=== PATIENT | female | born 1970 | race Two or more races ===

== ENCOUNTER 2023-02-23 08:56 | Outpatient (REF) | payer OTHER, SELFPAY ==
[2023-02-26 16:30] LABS: H Pylori Breath Test Negative (Negative)
== END 2023-02-23 08:57 | disposition home or self-care (01) ==
LOC: CF 08:56
PROVIDERS: PCP Internal Medicine; Visit Provider Nurse Practitioner Family
DX: R14.0 Abdominal distension (gaseous) (principal); K59.01 Slow transit constipation
CPT/HCPCS: 83013

== ENCOUNTER 2023-02-23 08:56 | Outpatient (AMB) | payer OTHER, SELFPAY ==
--- NOTE | 2023-02-23 09:02 | A.OFFVIS_ITS ---
Intake Vital Signs 02/23/23 09:07 Height 5 ft Weight 130 lb 4.438 oz BMI 25.4 Blood Pressure Location Lt brachial Position Sitting Intake Visit Reasons: Abdominal Bloating Intake Note: Bernice presents in the office for abdominal bloating. CC: she states that she does not have irregular bowel movements but she suffers from abdominal discomfort and bloating. Allergies No Known Allergies Allergy (Verified 02/23/23 09:07) HPI Abdominal Bloating HPI Details 52-year-old female with past medical his tory of gastritis is here today for requested visit. Patient has seen Dr. Lindo and last visit was in December of 2019. Patient had EGD in April of 2019 and colonoscopy in January of 2016. It showed esophagitis, gastritis, duodenitis, esophageal inlet patch noted, normal colon. Biopsy of GE junction with chronic gastritis negative for H pylori. Patient was treated with pantoprazole. Patient was also experiencing then abdominal bloating and was given simethicone with defect. Patient denies dyspepsia, dysphagia or odynophagia. Patient reports ongoing bloating, tried rifaximin and was not helpful in the past. Patient also tried FODMAP diet and it was not helpful. Currently patient reports that she does not have any epigastric pain postprandially. Patient reports she continues to have bloating. Reports that she is moving her bowels well without any issues. However occasionally patient reports that she will have constipation. She is using soursop capsules and she reports that they are helpful. Patient reports to have good appetite. Stable weight. Review of Systems Const Denies weight gain and Denies weight loss ENT Reports no additional complaints, Denies dysphagia and Denies odynophagia Card Reports no additional complaints Resp Reports no additional complaints GI Denies abdominal pain, Denies belching, Denies melena, Reports bloating, Denies change in bowel habits, Reports constipation (Occasional), Denies dysphagia, Denies excessive flatus, Denies dyspepsia, Denies heartburn, Denies diarrhea, Denies loose stools, Denies nausea, Denies odynophagia and Denies vomiting Details: Urinary frequency Musc Reports no additional complaints Neuro Reports no additional complaints Psych Reports no additional complaints Endo Reports no additional complaints Physical Exam Vital Signs: BMI result Body Mass Index 25.4 Const General: healthy appearing, no acute distress and well developed Nutritional Appearance: well nourished Orientation/consciousness: patient oriented x3 HEENT Head: Yes normal to inspection, Yes normocephalic and Yes atraumatic Face and sinus: Yes normal facial exam Mouth: Normal oral and palatal mucosa present Throat: Yes posterior oropharynx normal, Yes tonsils normal and Yes uvula midline Eyes General: appearance normal, both eyes and all related structures Neck Neck: Yes normal visual inspection, Yes full ROM and Yes trachea midline Thyroid: Thyroid normal Resp Effort & Inspection: normal respiratory effort, able to speak in complete sentences, no tracheal deviation and symmetric chest movement Auscultation: clear to auscultation bilaterally Cardio Rate: regular rate Heart sounds: S1 normal heart sound present and S2 normal heart sound present GI Inspection: Yes normal to inspection and No distended Palpation (GI): Soft to palpation, not firm, nontender and No hepatosplenomegaly present Auscultation: normal bowel sounds General: Yes no CVA tenderness Back/Spine/Pelvis Back: no CVA tenderness Skin General skin exam: elasticity normal, turgor normal and dry skin Neuro General: patient oriented x3 Psych Appearance: grossly normal Mental Status: mental status grossly normal Assessment & Plan Assessment & Plan (1) Postprandial abdominal bloating: Code(s): R14.0 - Abdominal distension (gaseous) (2) Constipation: Code(s): K59.00 - Constipation, unspecified Qualifiers: Constipation type: slow transit constipation Qualified Code(s): K59.01 - Slow transit constipation Plan Discussed with patient will FODMAP diet. List of food recommended as well as list of food to avoid given to patient. Patient was advised to stay away from lactose. Will check transglutaminase, vitamin B12, folate and D levels. Will check for H pylori. Will treat patient empirically if positive. Patient can start taking simethicone with meals. She will try to increase fluid intake and will drink senna tea. Patient reports urinary frequency. States that she has this issue for a long time. Would benefit from urology consult to rule out interstitial cystitis. Patient was advised to stop taking soursop capsules to see if her symptoms will get better. Avoid food and liquids that contain caffeine, chocolate, tomato, citrus. I will see her in 3 months, sooner on as needed basis. Patient is agreeable to this plan and verbalizes understanding of instructions. She was given the opportunity to ask questions and all questions answered. Thank you for allowing me to participate in her care Orders: Orders H Pylori Breath Test Today Vitamin D 25-OH (D2 and D3) Today E55.9 - Vitamin D deficiency, unspecified Transglutaminase Ab IgG Today R10.9 - Unspecified abdominal pain Transglutaminase IgA Today R10.9 - Unspecified abdominal pain Vitamin B12 and Folate Today R19.7 - Diarrhea, unspecified Medications: New simethicone (Gas Relief (simethicone)) 125 mg PO TID-QID PRN 120 caps 2RF abdominal distention Coding Level of Care Code New Pt Level 4 (46250) Diagnoses Postprandial abdominal bloating R14.0 Slow transit constipation K59.01 Constipation type: slow transit constipation Time Spent (min) 45 Comment 30 minutes spent with patient and additional 15 minutes spent reviewing her records
[2023-02-23 09:07] VITALS: BMI 25.4
== END 2023-02-23 09:56 | disposition home or self-care (01) ==
PROVIDERS: PCP Internal Medicine; Visit Provider Nurse Practitioner Family
DX: R14.0 Abdominal distension (gaseous) (principal); K59.01 Slow transit constipation
CPT/HCPCS: 99204

== ENCOUNTER 2023-08-05 08:38 | Outpatient (REF) | payer OTHER, SELFPAY ==
[2023-08-05 12:08] LABS: Folate 11.2 ng/mL (> or = 4.0); Vitamin B12 421 pg/mL (200-900)
[2023-08-06 19:14] LABS: Transglutaminase Ab IgG <1.0 U/mL; Transglutaminase IgA <1.0 U/mL
[2023-08-09 16:08] LABS: Vitamin D 25-OH, D2 <4 ng/mL; Vitamin D 25-OH, D3 29 ng/mL; Vitamin D 25-OH, Total 29 ng/mL (30-100)
== END 2023-08-05 08:39 | disposition home or self-care (01) ==
LOC: HO.LAB 08:38
PROVIDERS: PCP Internal Medicine; Visit Provider Nurse Practitioner Family
DX: R10.9 Unspecified abdominal pain (principal); R19.7 Diarrhea, unspecified; E55.9 Vitamin D deficiency, unspecified
CPT/HCPCS: 36415; 82306; 82607; 82746; 86364

== ENCOUNTER 2023-08-14 08:48 | Outpatient (REF) | payer OTHER, SELFPAY ==
[2023-08-14 11:20] LABS: Alanine Aminotransferase 14 U/L (0-31); Albumin Level 4.3 g/dL (3.5-5.0); Alkaline Phosphatase 80 U/L (39-117); Aspartate Amino Transferase 22 U/L (5-31); Bilirubin Direct 0.4 mg/dL (0.0-0.5); Bilirubin Total 1.4 mg/dL (0.0-1.0); Lipase 26 U/L (8-78); Total Protein 7.3 g/dL (6.5-8.0)
== END 2023-08-14 08:49 | disposition home or self-care (01) ==
LOC: HO.LAB 08:48
PROVIDERS: PCP Internal Medicine; Visit Provider Nurse Practitioner Family
DX: R10.9 Unspecified abdominal pain (principal); R14.0 Abdominal distension (gaseous); R74.01 Elevation of levels of liver transaminase levels; K59.01 Slow transit constipation
CPT/HCPCS: 36415; 80076; 83690

== ENCOUNTER 2023-08-14 08:48 | Outpatient (AMB) | payer OTHER, SELFPAY ==
--- NOTE | 2023-08-14 08:50 | A.OFFVIS_ITS ---
Intake Vital Signs 08/14/23 08:51 Weight 134 lb 0.657 oz BP 130/49 L Blood Pressure Location Lt brachial Position Sitting Pulse 57 Intake Visit Reasons: 3 month follow up postprandial abdominal bloating Intake Note: Patient here for 3m f/u post prandial abd bloating. Reports tried FODMAP diet and other diets with no improvement with bloating. Not taking gas relief. Pstient c/o: bloating, gassy. C/o foamy urine. Technical Mgr Required: No Accompanied by: Self / Same As Patient Allergies No Known Allergies Allergy (Verified 08/14/23 08:55) HPI 3 month follow up postprandial abdominal bloating HPI Details LAST VISIT: Postprandial abdominal bloating Constipation Plan Discussed with patient will FODMAP diet. List of food recommended as well as list of food to avoid given to patient. Patient was advised to stay away from lactose. Will check transglutaminase, vitamin B12, folate and D levels. Will check for H pylori. Will treat patient empirically if positive. Patient can start taking simethicone with meals. She will try to increase fluid intake and will drink senna tea. Patient reports urinary frequency. States that she has this issue for a long time. Would benefit from urology consult to rule out interstitial cystitis. Patient was advised to stop taking soursop capsules to see if her symptoms will get better. Avoid food and liquids that contain caffeine, chocolate, tomato, citrus. I will see her in 3 months, sooner on as needed basis. Patient is agreeable to this plan and verbalizes understanding of instructions. She was given the opportunity to ask questions and all questions answered. ? Thank you for allowing me to participate in her care Orders Orders H Pylori Breath Test Today Vitamin D 25-OH (D2 and D3) Today E55.9 Transglutaminase Ab IgG Today R10.9 Transglutaminase IgA Today R10.9 Vitamin B12 and Folate Today R19.7 Medications New simethicone (Gas Relief (simethicone)) 125 mg PO TID-QID PRN 120 caps 2RF abdom inal distention TODAY'S VISIT: Patient is here today for follow-up. Patient reports that she continues to feel bloated. Patient tried different food, followed low FODMAP diet, continues to feel bloated. Patient states that she does not empty her bowels every day. Uses black seed oil and seems to be helpful, however patient states that she is not using it every day. Patient states that when she goes to the bathroom she is not emptying her bowels completely. Patient feels like she drinks sufficient amount of liquid throughout the day. Patient reports that when she is urinating she feels like her urine is foamy. Patient denies any odor. . Denies any pain when urinating. Last colonoscopy in 2016 at [facility] patient had polyps and was told to repeat colonoscopy in 5 years. Patient had upper endoscopy in 2019. Reports family history of CRC. Patient states that maternal cousins were diagnosed with colon cancer in her 50s. Patient denies any issues with anesthesia in the past. No history of sleep apnea. Not on any anticoagulation medication. Patient denies any cardiac or respiratory symptoms. [facility] Medical History (Updated 08/14/23 @ 08:56 by SUYAPA Huitron) Arthritis Review of Systems Const Denies weight gain and Denies weight loss ENT Reports no additional complaints, Denies dysphagia and Denies odynophagia Card Reports no additional complaints Resp Reports no additional complaints GI Reports abdominal pain (Cramping), Denies belching, Denies melena, Reports bloating, Reports constipation, Denies dysphagia, Denies excessive flatus, Denies dyspepsia, Denies heartburn, Denies diarrhea, Denies loose stools, Denies nausea, Denies odynophagia and Denies vomiting Reports no additional complaints Musc Reports no additional complaints Neuro Reports no additional complaints Psych Reports no additional complaints Endo Reports no additional complaints Physical Exam Vital Signs: Last Vital Signs Pulse 57 08/14/23 08:51 BP 130/49 L 08/14/23 08:51 Const General: healthy appearing, no acute distress and well developed Nutritional Appearance: well nourished Orientation/consciousness: patient oriented x3 HEENT Head: Yes normal to inspection, Yes normocephalic and Yes atraumatic Face and sinus: Yes normal facial exam Mouth: Normal oral and palatal mucosa present Throat: Yes posterior oropharynx normal, Yes tonsils normal and Yes uvula midline Eyes General: appearance normal, both eyes and all related structures Neck Neck: Yes normal visual inspection, Yes full ROM and Yes trachea midline Thyroid: Thyroid normal Resp Effort & Inspection: normal respiratory effort, able to speak in complete sentences, no tracheal deviation and symmetric chest movement Auscultation: clear to auscultation bilaterally Cardio Rate: regular rate Heart sounds: S1 normal heart sound present and S2 normal heart sound present GI Inspection: Yes normal to inspection and No distended Palpation (GI): Soft to palpation, not firm, nontender and No hepatosplenomegaly present Auscultation: normal bowel sounds General: Yes no CVA tenderness Back/Spine/Pelvis Back: no CVA tenderness Skin General skin exam: elasticity normal, turgor normal and dry skin Neuro General: patient oriented x3 Psych Appearance: grossly normal Mental Status: mental status grossly normal Results Reviewed Results Reviewed: Laboratory Tests 02/23/23 08/05/23 09:56 08:50 Vitamin B12 421 25-OH Vitamin D Total 29 L Folate 11.2 Tiss Transglutamin IgG <1.0 Tiss Transglutamin IgA <1.0 H. pylori Breath Test Negative Assessment & Plan Assessment & Plan (1) Postprandial abdominal bloating: Code(s): R14.0 - Abdominal distension (gaseous) (2) Constipation: Code(s): K59.00 - Constipation, unspecified Qualifiers: Constipation type: slow transit constipation Qualified Code(s): K59.01 - Slow transit constipation (3) Screen for colon cancer: Code(s): Z12.11 - Encounter for screening for malignant neoplasm of colon Plan Patient continue feels bloated and occasional abdominal cramping. Will send patient for ultrasound. Will check for pancreatic insufficiency, check lipase. Patient can start taking MiraLax on every day basis to see if she can empty her bowels completely. Patient will increase fluid intake and activity to promote better bowel motility. Patient will be sent for colonoscopy. History of colonoscopy in 2016 with polyps. Was told to repeat colonoscopy every 5 years. Patient also has positive family history of CRC. Maternal cousins were diagnosed with CRC in their 50s. Patient denies any issues with anesthesia. No history of sleep apnea. Not on any anticoagulation medication. No cardiac or respiratory symptoms. What to expect before during and after procedure discussed with patient. Stressed the importance of clear liquid diet and good bowel prep day before procedure. I will see her after the procedure, sooner on as needed basis. Patient is agreeable to this plan and verbalizes understanding of instructions. She was given the opportunity to ask questions and all questions answered. Thank you for allowing me to participate in her care Orders: Orders Pancreatic Elastase-1 Today R10.9 - Unspecified abdominal pain Liver Panel Today R74.01 - Elevation of levels of liver transaminase levels US abdomen complete Today R10.9 - Unspecified abdominal pain Lipase Today R10.9 - Unspecified abdominal pain Medications: New polyethylene glycol 3350 (Miralax) 17 grams PO DAILY 510 grams 2RF bisacodyl (Dulcolax (bisacodyl)) take 4 tabs at noon the day before your colonoscopy 20 mg (4 x 5 mg) PO ONCE 1 day 4 tabs 0RF Z12.11 - Encounter for screening for malignant neoplasm of colon polyethylene glycol 3350 (Miralax) As directed by gastroenterology department at [facility] 238 grams PO ONCE 238 grams 0RF Z12.11 - Encounter for screening for malignant neoplasm of colon Coding Level of Care Code Est Pt Level 4 (00723) Diagnoses Postprandial abdominal bloating R14.0 Slow transit constipation K59.01 Constipation type: slow transit constipation Screen for colon cancer Z12.11 Time Spent (min) 40 Comment 25 minutes spent with patient and additional 15 minutes spent reviewing her records
[2023-08-14 08:51] VITALS: BP 130/49; PULSE 57
== END 2023-08-14 09:47 | disposition home or self-care (01) ==
PROVIDERS: PCP Internal Medicine; Visit Provider Nurse Practitioner Family
DX: R14.0 Abdominal distension (gaseous) (principal); K59.01 Slow transit constipation; Z12.11 Encounter for screening for malignant neoplasm of colon
CPT/HCPCS: 99214

== ENCOUNTER 2023-08-25 07:49 | Outpatient (REF) | payer OTHER, SELFPAY ==
--- NOTE | ~2023-08-25 | US_ITS ---
EXAMINATION: US ABDOMEN COMPLETE CLINICAL INFORMATION: Unspecified abdominal pain. COMPARISON: None available. TECHNIQUE: Real-time imaging of the abdominal viscera. FINDINGS: PANCREAS: Normal. ABDOMINAL AORTA: The proximal, mid, and distal segments are normal in caliber. Minimal atherosclerotic plaque is seen in the distal abdominal aorta. INFERIOR VENA CAVA: Visualized portions are normal. LIVER: Normal. The liver is normal in size. The liver contour is normal. Parenchymal echogenicity is normal. No focal hepatic lesion. There is no intrahepatic biliary duct dilatation seen. GALLBLADDER: Normal. The gallbladder is physiologically distended without evidence of stones, sludge, polyps, wall thickening or pericholecystic fluid. No sonographic Botello's sign COMMON BILE DUCT: Normal in caliber measuring 0.5 cm in diameter. RIGHT KIDNEY: Normal. No hydronephrosis. No renal calculi or focal parenchymal lesions. The kidney measures 9.0 cm in maximum dimension. LEFT KIDNEY: Normal. No hydronephrosis. No renal calculi or focal parenchymal lesions. The kidney measures 9.6 cm in maximum dimension. SPLEEN: Normal. The spleen measures 7.8 cm in maximum dimension. FREE FLUID: None. US/US abdomen complete IMPRESSION: Minimal atherosclerotic plaque is seen in the distal abdominal aorta. No other significant finding.
== END 2023-08-25 07:50 | disposition home or self-care (01) ==
LOC: HO.US 07:49
PROVIDERS: PCP Internal Medicine; Visit Provider Nurse Practitioner Family
DX: R10.9 Unspecified abdominal pain (principal)
CPT/HCPCS: 76700

== ENCOUNTER 2024-04-20 09:01 | Day surgery (SDC) | payer OTHER, SELFPAY ==
--- NOTE | 2024-04-19 12:27 | HO.ANESPROP2 ---
Documented by User: Karyna Norman NP 04/19/24 12:27 HPI - Anesthesia Eval Consult details Narrative: 53yo F for Colonoscopy PMFSH Past Medical History Medical History Arthritis Social History Social History Are you a primary manager care management to a significant other at home: No Do you presently have visiting nurse or other home services: No Patient Tobacco Use Status: Never used Tobacco Use of substances other than those prescribed or required for medical reasons: No Have you been hit, kicked, punched, or otherwise hurt by someone within the past year? If so, by whom?: No Are you DNR?: No Advance Directives: No Advance Directives Information Provided: Yes Recently lost weight without trying: No Nutrition Risks: No Nutritional Risk Patient : No Meds Allergies Allergy/AdvReac Type Severity Reaction Status Date / Time No Known Allergies Allergy Verified 08/14/23 08:55 Home Medications ?Medication ?Instructions ?Recorded ?Confirmed ?Last Taken ?Type magnesium oxide 400 mg (241.3 mg 400 mg PO DAILY 02/23/23 Unknown History magnesium) tablet riboflavin (vitamin B2) 100 mg 200 mg PO BID headache 02/23/23 Unknown History tablet (Vitamin B-2) Exam Height,Weight and Vital Signs: Weight 60.781 kg Assessment and Plan Assessment Anesthesia Assessment: Chart Reviewed Documented by User: Royal Hermosillo MD 04/20/24 10:45 [facility] Past Medical History Medical History Arthritis Family History Family history of problems with anesthesia: No Surgical History History of Problems with Anesthesia: No Social History Social History Are you a primary manager care management to a significant other at home: No Do you presently have visiting nurse or other home services: No Patient Tobacco Use Status: Never used Tobacco Use of substances other than those prescribed or required for medical reasons: No Have you been hit, kicked, punched, or otherwise hurt by someone within the past year? If so, by whom?: No Are you DNR?: No Advance Directives: No Advance Directives Information Provided: Yes Recently lost weight without trying: No Nutrition Risks: No Nutritional Risk Patient : No Meds Allergies Allergy/AdvReac Type Severity Reaction Status Date / Time No Known Allergies Allergy Verified 08/14/23 08:55 Home Medications ?Medication ?Instructions ?Recorded ?Confirmed ?Last Taken ?Type magnesium oxide 400 mg (241.3 mg 400 mg PO DAILY 02/23/23 Unknown History magnesium) tablet riboflavin (vitamin B2) 100 mg 200 mg PO BID headache 02/23/23 Unknown History tablet (Vitamin B-2) Exam Airway Mallampati Class: II TM Dist: >3cm Neck ROM: Full Loose/Missing/Broken Teeth: No Heart: ok Lungs: ok Assessment and Plan Assessment Anesthesia Assessment: Anesthesia Plan Discussed Final Anesthetic Review Family History of Problems with Anesthesia: No History of Problems with Anesthesia: No NPO: Yes ASA Class: II Final Preanesthetic Review: No Changes in Pt Med Stat, Meds/Allgs Chart Reviewed, Consent Obtained/Reviewed and Anes Risks/Benef Reviewed Patient Risk: Low Procedure Risk: Low Anesthetic Plan Anesthetic Plan: MAC: and Agree w/ Assess. and Plan Disposition: Standard PACU
--- OUTSIDE RECORDS SUMMARY | 2024-04-20 09:09 | XMS_ITS | Continuity of Care Document ---
Author Organization [facility] Address [address] [place] [address]- Care Team Providers Care Student Development Dean Name Role Phone Aria Dela Cruz MD Primary Care Physician [phone] Encounter [facility] Date(s): 02/24/24 - 03/25/24 [facility] [address] [place], [place] [address] Encounter Type: Triage Allergies, Adverse Reactions, Alerts Substance Criticality Severity Reaction Reaction Severity Status Other Environmental Allergy 1 Active Lactose Active 1seasonal Immunizations Given and Recorded Vaccine Date Status Refusal Reason influenza virus vaccine, inactivated 1 02/23/23 Gi ginger influenza virus vaccine, inactivated 2 03/17/22 Gi ginger influenza virus vaccine, inactivated 3 05/20/18 Gi ginger SARS-CoV-2 (COVID-19) mRNA-1273 vaccine 09/11/20 R ecorded SARS-CoV-2 (COVID-19) mRNA-1273 vaccine 08/14/20 R ecorded tetanus/diphtheria/pertussis, acel(Tdap) 4 05/20/18 Given 1Result Comment: [facility] 26884-499-49 2Result Comment: 34038-347-90 3Result Comment: [05/20/2018] [facility]# [id number] pt. tolerated inj. without complications...CO 4Result Comment: [05/20/2018] [facility]# [id number] pt. tolerated inj. without complications...CO Medications Calcium Calcium, 0 Refills, Maintenance, 05/22/23 8:59:00 AM EST Start Date: 05/22/23 Status: Ordered Repeat number: 1 Collagen 0 Refills, Maintenance, 02/23/23 2:52:00 PM EDT, Partial fill upon patient request if the prescription is for a schedule II opioid drug. Start Date: 02/23/23 Status: Ordered Repeat number: 1 estradiol 0.1 mg/g vaginal cream See Instructions, 1 Gm Vaginally daily at bedtime for 2 weeks only then changed to twice weekly thereafter., # 42.5 Gm, 2 Refills, Maintenance, 05/22/23 3:57:00 PM EST, [facility] #[id number], Partial fill upon patient request if the prescription is for a schedule II opioid drug., 152, cm, 03/31/23 9:58:00 EST, Height, 59, kg, 05/22/23 8:58:00 EST, Dry Weight Start Date: 05/22/23 Status: Ordered Quantity: 42.5 Unit: g Repeat number: 3 Flax Seed Oil 0 Refills, Maintenance, 02/20/22 7:58:00 AM EDT, Partial fill upon patient request if the prescription is for a schedule II opioid drug. Start Date: 02/20/22 Status: Ordered Repeat number: 1 Mag-Ox 400 400 mg oral tablet 1 tablet = 400 mg, By Mouth, Daily, for 30 days, # 30 tablet, 11 Refills, Acute 07/01/24 10:18:00 AMEST, 07/07/23 10:18:00 AM EST, Tablet, [facility] #[id number], Partial fill upon patient requestif the prescription is for a schedule II opioid drug., 152, cm, 02/23/23 13:57:00 EDT, Height, 62, kg, 03/17/22 15:15:00 EST, Dry Weight Start Date: 07/07/23 Stop Date: 07/01/24 Status: Ordered Quantity: 30.0 Unit: tablet Repeat number: 12 Melatonin = 5 mg, Daily at bedtime, 0 Refills, Maintenance, 06/08/17 1:28:31 PM EST Start Date: 06/08/17 Status: Ordered Repeat number: 1 Misc Rx Refills 0, Maintenance, SUGAR BEARS GUMMIES HAIR VITAMINS, 01/10/19 8:14:13 AM EDT, Compound Start Date: 01/10/19 Status: Ordered Repeat number: 1 Misc Rx Refills 0, Maintenance, CALCIUM, 05/12/22 11:57:00 AM EST, Supply Start Date: 05/12/22 Status: Ordered Repeat number: 1 Misc Rx See Instructions, Refills 0, Maintenance, organic sea avila, 01/08/23 10:12:00 AM EDT, Supply Start Date: 01/08/23 Status: Ordered Repeat number: 1 Misc Rx Refills 0, Maintenance, black seed 500mg, 01/08/23 10:13:00 AM EDT, Supply Start Date: 01/08/23 Status: Ordered Repeat number: 1 Misc Rx Refills 0, Maintenance, graviola 5000mg, 01/08/23 10:14:00 AM EDT, Supply Start Date: 01/08/23 Status: Ordered Repeat number: 1 Multivitamin Daily, 0 Refills, Maintenance, 02/20/16 1:46:26 PM EDT Start Date: 02/20/16 Status: Ordered Repeat number: 1 Vitamin B12 0 Refills, Maintenance, 12/07/17 8:22:42 AM EDT Start Date: 12/07/17 Status: Ordered Repeat number: 1 Vitamin B12 1000 mcg oral tablet 1 tablet = 1,000 mcg, By Mouth, Daily, # 90 tablet, 3 Refills, Maintenance, 02/23/23 2:49:00 PM EDT, Tablet, [facility] #[id number], Partial fill upon patient request if the prescription is for a schedule II opioid drug., 152, cm, 02/23/23 13:57:00 EDT, Height, 62, kg, 03/17/22 15:15:00 EST, Dry Weight Start Date: 02/23/23 Status: Ordered Quantity: 90.0 Unit: tablet Repeat number: 4 Vitamin B2 100 mg oral tablet 2 tablet = 200 mg, By Mouth, 2 times a day, FOR HEADACHES, # 360 tablet, 3 Refills, Maintenance, 06/15/23 11:42:00 AM EST, Tablet, [facility] #[id number], Partial fill upon patient request if theprescription is for a schedule II opioid drug., 152, cm, 06/15/23 11:29:00 EST, Height, 59, kg, 05/22/23 8:58:00 EST, Dry Weight Start Date: 06/15/23 Status: Ordered Quantity: 360.0 Unit: tablet Repeat number: 4 Vitamin D3 1000 intl units oral capsule 1 capsule = 25 mcg, By Mouth, Daily, # 75 capsule, 0 Refills, Maintenance, 02/23/23 2:52:00 PM EDT,Capsule, Partial fill upon patient request if the prescription is for a schedule II opioid drug. Start Date: 02/23/23 Status: Ordered Quantity: 75.0 Unit: capsule Repeat number: 1 Problem List Condition Confirmation Course Effective Dates Status Health Status Informant Allergic rhinitis Confirmed Active Hair loss Confirmed Active Anemia Confirmed Active Arthritis Confirmed Active Bruxism Confirmed Active Chest pain Confirmed Active B12 deficiency Confirmed Active COVID-19 virus infection Confirmed Active Degenerative cervical disc Confirmed Active Diarrhea Confirmed Active Fatigue Confirmed Active Headache Confirmed Active Joint pain Confirmed Active Muscle ache Confirmed Active Nausea Confirmed Active Obstructive sleep apnea Confirmed Active Palpitations Confirmed Active Hand tingling Confirmed Active Routine check-up Confirmed Active Snoring Confirmed Active Muscle spasm Confirmed Active Spondylolisthesis Confirmed Active Bilateral thigh pain Confirmed Active Vitamin D deficiency Confirmed Active Social History Social History Type Response Smoking Status Never smoker entered on: 02/16/15 Sex Sex Representation Female (finding) Patient Care team information Care Team Personnel Name: Aria Dela Cruz MD Position: [facility] Physician - Primary Care Member Role: PCP Address: [address] [place] [address] Telecom: Care Team Related Persons Name: JULIAN PALUMBO Name: TREVOR PALUMBO Name: ELLIS FARIAS Name: ELLIS FARIAS Insurance Providers Guarantor name: SBAAS BENJAMIN Health Plan Information #: 1 Payer: [facility] SELECT HMO Member Number: NA Policy Number: NA Group Number: NA
--- OUTSIDE RECORDS SUMMARY | 2024-04-20 09:09 | XMS_ITS | Continuity of Care Document ---
Author Organization [facility] Address [address] [place] [address]- Care Team Providers Care Grinder Set Up Operator Universal Name Role Phone Aria Dela Cruz MD Primary Care Physician [phone] Encounter [facility] Date(s): 03/10/24 - 04/09/24 [facility] [address] [place] [address]- Attending Physician: Admtr, Ar8 Admitting Physician: Admtr, Ar8 Referring Physician: Admtr, Ar8 Encounter Type: Triage Allergies, Adverse Reactions, Alerts Substance Criticality Severity Reaction Reaction Severity Status Lactose Active Other Environmental Allergy 1 Active 1seasonal Immunizations Given and Recorded Vaccine Date Status Refusal Reason influenza virus vaccine, inactivated 1 02/23/23 Gi ginger influenza virus vaccine, inactivated 2 03/17/22 Gi ginger influenza virus vaccine, inactivated 3 05/20/18 Gi ginger SARS-CoV-2 (COVID-19) mRNA-1273 vaccine 09/11/20 R ecorded SARS-CoV-2 (COVID-19) mRNA-1273 vaccine 08/14/20 R ecorded tetanus/diphtheria/pertussis, acel(Tdap) 4 05/20/18 Given 1Result Comment: [facility] 71143-187-38 2Result Comment: [id number] 3Result Comment: [05/20/2018] [facility]# [id number] pt. tolerated inj. without complications...CO 4Result Comment: [05/20/2018] [facility]# [id number] pt. tolerated inj. without complications...CO Medications Calcium [...] 2 Refills, Maintenance, 05/22/23 3:57:00 PM EST, [facility] #[id number], Partial fill upon patient request if the [...] 10:18:00 AMEST, 07/07/23 10:18:00 AM EST, Tablet, [id number], Partial fill upon patient requestif the prescription [...] Refills, Maintenance, 02/23/23 2:49:00 PM EDT, Tablet, [facility] #[id number], Partial fill upon patient request if the [...] Refills, Maintenance, 06/15/23 11:42:00 AM EST, Tablet, [facility] #[id number], Partial fill upon patient request if theprescription [...] Personnel Name: Aria Dela Cruz MD Position: [facility] Physician - Primary Care Member Role: PCP Address: [address] [place] [address] Telecom: Care Team Related Persons Name: JULIAN PALUMBO Name: TREVOR PALUMBO Name: ELLIS FARIAS Name: ELLIS FARIAS Insurance Providers Guarantor name: SABAS BENJAMIN Health Plan Information #: 1 Payer: [facility] SELECT HMO Member Number: NA Policy Number: NA Group Number: NA
--- OUTSIDE RECORDS SUMMARY | 2024-04-20 09:09 | XMS_ITS | Continuity of Care Document ---
Author Organization [facility] Address [address] [place] [address]- Care Team Providers Care Stamping Press Operator Name Role Phone Aria Dela Cruz MD Primary Care Physician Encounter [facility] [id number] Date(s): 03/10/24 - 04/09/24 [facility] [address] [place], [place] [address] Encounter Type: Triage Allergies, Adverse Reactions, Alerts [...] tetanus/diphtheria/pertussis, acel(Tdap) 4 05/20/18 Given 1Result Comment: [facility] [id number] 2Result Comment: [id number] 3Result Comment: [05/20/2018] [facility]# [id number] pt. tolerated inj. without complications...CO 4Result Comment: [05/20/2018] [facility]# [id number] pt. tolerated inj. without complications...CO Medications Calcium [...] 2 Refills, Maintenance, 05/22/23 3:57:00 PM EST, [facility] #[id number], Partial fill upon patient request if the [...] 10:18:00 AMEST, 07/07/23 10:18:00 AM EST, Tablet, [facility] #[id number], Partial fill upon patient requestif the prescription [...] Refills, Maintenance, 02/23/23 2:49:00 PM EDT, Tablet, [facility] #[id number], Partial fill upon patient request if the [...] Refills, Maintenance, 06/15/23 11:42:00 AM EST, Tablet, [facility] #[id number], Partial fill upon patient request if theprescription [...] Personnel Name: Aria Dela Cruz MD Position: [facility] Physician - Primary Care Member Role: PCP Address: [address] [place] [address] Telecom: Care Team Related Persons Name: JULIAN PALUMBO Name: TREVOR PALUMBO Name: ELLIS FARIAS Name: ELLIS FARIAS Insurance Providers Guarantor name: SABAS BENJAMIN Health Plan Information #: 1 Payer: [facility] SELECT HMO Member Number: NA Policy Number: NA Group Number: NA
--- OUTSIDE RECORDS SUMMARY | 2024-04-20 09:10 | XMS_ITS | Continuity of Care Document ---
Author Organization [facility] Address [address], [place] [address]- Care Team Providers Care Cycle Manager Name Role Phone Aria Dela Cruz MD Primary Care Physician [id number] Date(s): 11/27/23 - 03/26/24 [facility] [address] [place], [place] [address] Attending Physician: Aria Dela Cruz MD Encounter Type: Pre Office Visit Allergies, Adverse Reactions, Alerts Substance Criticality Severity [...] tetanus/diphtheria/pertussis, acel(Tdap) 4 05/20/18 Given 1Result Comment: [facility] [id number] 2Result Comment: [id number] 3Result Comment: [05/20/2018] [facility]# [id number] pt. tolerated inj. without complications...CO 4Result Comment: [05/20/2018] [facility]# [id number] pt. tolerated inj. without complications...CO Medications Calcium [...] 2 Refills, Maintenance, 05/22/23 3:57:00 PM EST, [facility] #[id number], Partial fill upon patient request if the [...] 10:18:00 AMEST, 07/07/23 10:18:00 AM EST, Tablet, [facility] #[id number], Partial fill upon patient requestif the prescription [...] Refills, Maintenance, 02/23/23 2:49:00 PM EDT, Tablet, [facility] #[id number], Partial fill upon patient request if the [...] Refills, Maintenance, 06/15/23 11:42:00 AM EST, Tablet, [facility] #[id number], Partial fill upon patient request if theprescription [...] Personnel Name: Aria Dela Cruz MD Position: [facility] Physician - Primary Care Member Role: PCP Address: [address] [place] [address] Telecom: Care Team Related Persons Name: JULIAN PALUMBO Name: TREVOR PALUMBO Name: ELLIS FARIAS Name: ELLIS FARIAS Insurance Providers Guarantor name: SABAS BENJAMIN Health Plan Information #: 1 Payer: [facility] SELECT HMO Member Number: [id number] Policy Number: NA Group Number: [id number] Health Plan Information #: 2 Payer: [facility] SELECT HMO Member Number: [id number] Policy Number: NA Group Number: NA
[2024-04-20 10:02] VITALS: BMI 24.8
[2024-04-20 10:14] VITALS: BP 98/50; PULSE 55; RESP 16; TEMP 36.9; O2SAT 100
--- NOTE | 2024-04-20 10:17 | P.HPSUR_ITS ---
Pre-Procedural Eval Section A - 24 Hr Update-Section A only Date of Service: 04/20/24 Section B - Complete if H&P > 30 days Chief Complaint: Abdominal distension (gaseous),constipation, Relevant Family History (Specify if Yes): No Relevant Social History: None Present Medications: see Short Stay Collaborative assessment Medical History: Significant History (arthritis) History of Previous Operations: No relevant previous surgery Allergies: Allergies Allergy/AdvReac Type Severity Reaction Status Date / Time No Known Allergies Allergy Verified 08/14/23 08:55 Review of Systems Sugical H&P ROS: Negative: Constitution, Cardiovascular, Respiratory, Neurologi kristie, Psychiatric, Hem-Onc, Allergic/Immunologic, Gastrointestinal, Genitourinary, Musculoskeletal, Integumentary, Endocrine and Eyes/Ears/Nose/Throat Exam Surgical H&P Exam: Normal: HEENT, Normal: Heart, Normal: Lungs, Normal: Extremities, Normal: Abdomen, Normal: Skin and Normal: Neurological Plan Diagnosis/Plan: Unchanged I have reviewed the history and physical and performed a pertinent physical examination on my patient. No changes have occurred unless specified. Time Spent With Patient Time: Total time managing care of this patient today ____ minutes.
[2024-04-20] MEDS: Lactated Ringers 1,000 ML 100 ML IVCONT (10:23)
--- NOTE | 2024-04-20 10:54 | P.OPN-COLO_ITS ---
Colonoscopy Operative Note Operative Note Date of Service: 04/20/24 Narrative: Operative Information Procedure Description: Colonoscopy Indication: hx of polyps Anesthesia: MAC COLONOSCOPY Instrument: Olympus variable stiffness pediatric scope 190L Colonoscopy Monitoring: Vital signs and clinical assessment, continuous EKG monitoring, Pulse oximetry, Carbon Dioxide monitoring and blood pressure monitoring were done throughout the procedure. Colon withdrawal time was 8 minutes. Procedure: The patient was placed in the left lateral decubitis position and pre-procedure medications were administered. After a digital rectal examination of the ano-rectum, the video colonoscope was inserted into the rectum and advanced through the colon to the cecum/TI. The colonoscope was slowly withdrawn in a retrograde panoramic fashion and the colon mucosa was carefully examined including a retroflexed view of the rectum. Findings and interventions are described below. Procedure Difficulty: moderate due to tortuous colon Findings: Terminal Ileum-normal Cecum:normal Right sided retroflexion- normal Ascending Colon: normal Transverse Colon -normal Descending Colon:normal Sigmoid Colon: normal Rectum: Retroflexion with medium sized internal hemorrhoids seen, grade I Anorectum - normal Intervention: none Colon preparation: [place] Bowel Preparation Scale Right colon; 2 Transverse colon: 3 Left colon; 3 (0 = Unprepared colon segment with mucosa not seen due to solid stool that cannot be cleared. 1 = Portion of mucosa of the colon segment seen, but other areas of the colon segment not well seen due to staining, residual stool and/or opaque liquid. 2 = Minor amount of residual staining, small fragments of stool and/or opaque liquid, but mucosa of colon segment seen well. 3 = Entire mucosa of colon segment seen well with no residual staining, small fragments of stool or opaque liquid) Impression and Post Procedure Diagnosis: tortuous colon, might explain her constipation internal hemorrhoids Plan: High fiber diet leaflet Avoid straining at stool, epsom salts and sitz bath, anusol supps or cream Repeat Colonoscopy in 5 years due to prior hx of colon polyps or earlier if clinically indicated Above findings were reviewed with the patient and relevant handouts were provided if indicated.
[2024-04-20 11:00] VITALS: BP 82/45; PULSE 64; RESP 18; TEMP 36.1
[2024-04-20 11:15] VITALS: BP 106/52; PULSE 60; RESP 16; TEMP 36.1; O2SAT 98
== END 2024-04-20 12:08 | disposition home or self-care (01) ==
PROVIDERS: PCP Internal Medicine; Visit Provider Internal Medicine Gastroenterology
PROC: 0DJD8ZZ Inspection of Lower Intestinal Tract, Via Natural or Artificial Opening Endoscopic (ICD-10-PCS; CPT 45378; principal; 2024-04-20 11:20)
DX: Z12.11 Encounter for screening for malignant neoplasm of colon (principal); Z86.0101 Personal history of adenomatous and serrated colon polyps; K64.0 First degree hemorrhoids; R14.0 Abdominal distension (gaseous); K59.01 Slow transit constipation; Q43.8 Other specified congenital malformations of intestine
CPT/HCPCS: 45378; J2003; J2704

== ENCOUNTER → 2024-04-20 09:01 | Outpatient (BNV) | payer OTHER, SELFPAY | PROVIDERS: PCP Internal Medicine; Visit Provider Internal Medicine Gastroenterology | DX: Z12.11 Encounter for screening for malignant neoplasm of colon (principal); Z86.0100 Personal history of colon polyps, unspecified; Z80.0 Family history of malignant neoplasm of digestive organs; K64.0 First degree hemorrhoids | CPT/HCPCS: 45378 ==

== ENCOUNTER 2024-05-11 09:53 | Outpatient (AMB) | payer OTHER, SELFPAY ==
[2024-05-11 09:59] VITALS: BP 108/58; PULSE 64; O2SAT 98; BMI 25.8
--- NOTE | 2024-05-11 09:59 | A.OFFVIS_ITS ---
Vital Signs 05/11/24 09:59 Height 5 ft Weight 132 lb 4.438 oz BMI 25.8 BP 108/58 L Blood Pressure Location Lt brachial Position Sitting Pulse 64 Pulse Source Pulse Oximeter Pulse Oximetry (%) 98 Oxygen Delivery Method Room Air Intake Visit Reasons: S/P [place]: Dr. Samuel Intake Note: ESTABLISHED PATIENT Reason; s/p colo Changes/concerns? Tortuous colon per TH. Pt states that their bowel habits had improved post op until this past week when they returned to their chronic sx presentation. Allergies No Known Allergies Allergy (Verified 05/11/24 10:05) HPI HPI S/P [place]: Dr. Samuel: Details: LAST VISIT Postprandial abdominal bloating Constipation Screen for colon cancer Plan Patient continue feels bloated and occasional abdominal cramping. Will send patient for ultrasound. Will check for pancreatic insufficiency, check lipase. Patient can start taking MiraLax on every day basis to see if she can empty her bowels completely. Patient will increase fluid intake and activity to promote better bowel motility. Patient will be sent for colonoscopy. History of colonoscopy in 2016 with polyps. Was told to repeat colonoscopy every 5 years. Patient also has positive family history of CRC. Maternal cousins were diagnosed with CRC in their 50s. Patient denies any issues with anesthesia. No history of sleep apnea. Not on any anticoagulation medication. No cardiac or respiratory symptoms. What to expect before during and after procedure discussed with patient. Stressed the importance of clear liquid diet and good bowel prep day before procedure. I will see her after the procedure, sooner on as needed basis. Patient is agreeable to this plan and verbalizes understanding of instructions. She was given the opportunity to ask questions and all questions answered. ? Thank you for allowing me to participate in her care Orders Orders Pancreatic Elastase-1 Today R10.9 Liver Panel Today R74.01 US abdomen complete Today R10.9 Lipase Today R10.9 Medications New polyethylene glycol 3350 (Miralax) 17 grams PO DAILY 510 grams 2RF bisacodyl (Dulcolax (bisacodyl)) take 4 tabs at noon the day before your colonoscopy 20 mg (4 x 5 mg) PO ONCE 1 day 4 tabs 0RF Z12.11 polyethylene glycol 3350 (Miralax) As directed by gastroenterology department at [facility] 238 grams PO ONCE 238 grams 0RF Z12.11 COLONOSCOPY Findings: Terminal Ileum-normal Cecum:normal Right sided retroflexion- normal Ascending Colon: normal Transverse Colon -normal Descending Colon:normal Sigmoid Colon: normal Rectum: Retroflexion with medium sized internal hemorrhoids seen, grade I Anorectum - normal Intervention: none Colon preparation: [place] Bowel Preparation Scale Right colon; 2 Transverse colon: 3 Left colon; 3 (0 = Unprepared colon segment with mucosa not seen due to solid stool that cannot be cleared. 1 = Portion of mucosa of the colon segment seen, but other areas of the colon segment not well seen due to staining, residual stool and/or opaque liquid. 2 = Minor amount of residual staining, small fragments of stool and/or opaque liquid, but mucosa of colon segment seen well. 3 = Entire mucosa of colon segment seen well with no residual staining, small fragments of stool or opaque liquid) Impression and Post Procedure Diagnosis: tortuous colon, might explain her constipation internal hemorrhoids Plan: High fiber diet leaflet Avoid straining at stool, epsom salts and sitz bath, anusol supps or cream Repeat Colonoscopy in 5 years due to prior hx of colon polyps or earlier if clinically indicated TODAY'S VISIT Patient is here today for follow-up and to discuss colonoscopy results. Patient denies any ill effects from the prep, anesthesia or procedure itself. Patient reports to be feeling fairly well since the procedure, however she continues to have occasional trouble moving her bowels, however she reports that she feels like sometimes it is related to what she eats. Patient reports that she is trying to drink more fluids patient had normal colonoscopy, however due to family history of CRC patient will need to return for colonoscopy in 5 years. Patient denies melena, hematochezia. Reports that her hemorrhoids are coming back and she can feel them. Previously used Proctosol with some results. Patient denies any dyspepsia, dysphagia or odynophagia. After last visit patient had blood work that included liver enzymes, lipase, transglutaminase as well as abdominal ultrasound for complaining of abdominal pain, bloating and cramping. Or her lab work was normal as well as the ultrasound. [facility] Medical History Arthritis Surgical History (Updated 05/11/24 @ 10:07 by NICO Jewell) H/O colonoscopy Social History Are you a primary daycare teacher to a significant other at home: No Do you presently have visiting nurse or other home services: No Patient Tobacco Use Status: Never used Tobacco Review of Systems Const Denies weight gain and Denies weight loss ENT Reports no additional complaints, Denies dysphagia and Denies odynophagia Card Reports no additional complaints Resp Reports no additional complaints GI Reports abdominal pain (Cramping, occasional), Denies belching, Denies melena, Reports bloating, Reports constipation, Denies dysphagia, Denies excessive flatus, Denies dyspepsia, Denies heartburn, Denies diarrhea, Denies loose stools, Denies nausea, Denies odynophagia and Denies vomiting Reports no additional complaints Musc Reports no additional complaints Neuro Reports no additional complaints Psych Reports no additional complaints Endo Reports no additional complaints Physical Exam Vital Signs: Last Vital Signs Pulse 64 05/11/24 09:59 BP 108/58 L 05/11/24 09:59 Pulse Ox 98 05/11/24 09:59 Oxygen Delivery Method Room Air 05/11/24 09:59 BMI result Body Mass Index 25.8 Const General: healthy appearing, no acute distress and well developed Nutritional Appearance: well nourished Orientation/consciousness: patient oriented x3 Resp Effort & Inspection: normal respiratory effort, able to speak in complete sentences, no tracheal deviation and symmetric chest movement Auscultation: clear to auscultation bilaterally Cardio Rate: regular rate GI Inspection: Yes normal to inspection and No distended Palpation (GI): Soft to palpation, not firm, nontender and No hepatosplenomegaly present Auscultation: normal bowel sounds General: Yes no CVA tenderness Back/Spine/Pelvis Back: no CVA tenderness Skin General skin exam: elasticity normal, turgor normal and dry skin Neuro General: patient oriented x3 Psych Appearance: grossly normal Mental Status: mental status grossly normal Results Reviewed Results Reviewed: ULTRASOUND OF ABDOMEN 08/25/2023 FINDINGS: PANCREAS: Normal. ABDOMINAL AORTA: The proximal, mid, and distal segments are normal in caliber. Minimal atherosclerotic plaque is seen in the distal abdominal aorta. INFERIOR VENA CAVA: Visualized portions are normal. LIVER: Normal. The liver is normal in size. The liver contour is normal. Parenchymal echogenicity is normal. No focal hepatic lesion. There is no intrahepatic biliary duct dilatation seen. GALLBLADDER: Normal. The gallbladder is physiologically distended without evidence of stones, sludge, polyps, wall thickening or pericholecystic fluid. No sonographic Botello's sign COMMON BILE DUCT: Normal in caliber measuring 0.5 cm in diameter. RIGHT KIDNEY: Normal. No hydronephrosis. No renal calculi or focal parenchymal lesions. The kidney measures 9.0 cm in maximum dimension. LEFT KIDNEY: Normal. No hydronephrosis. No renal calculi or focal parenchymal lesions. The kidney measures 9.6 cm in maximum dimension. SPLEEN: Normal. The spleen measures 7.8 cm in maximum dimension. FREE FLUID: None. Laboratory Tests 08/05/23 08/14/23 08:50 09:56 Total Bilirubin 1.4 H Direct Bilirubin 0.4 AST 22 ALT 14 Alkaline Phosphatase 80 Lipase 26 Tiss Transglutamin IgA <1.0 Assessment & Plan Assessment & Plan (1) Constipation: Code(s): K59.00 - Constipation, unspecified Qualifiers: Constipation type: slow transit constipation Qualified Code(s): K59.01 - Slow transit constipation (2) Postprandial abdominal bloating: Code(s): R14.0 - Abdominal distension (gaseous) (3) Hemorrhoids without complication: Code(s): K64.9 - Unspecified hemorrhoids Plan Patient will try fiber and will increase fluid intake and activity to promote better bowel motility. Increase fiber in her diet. Proctosol sent to pharmacy. Recommended Sitz baths with Epsom salts as needed. Due to family history of CRC patient will return for colonoscopy in 5 years, sooner if clinically nec essary. Patient will follow-up in our office if she will have any GI concerning symptoms. Patient is agreeable to this plan and verbalizes understanding of instructions. She was given the opportunity to ask questions and all questions answered. Thank you for allowing me to participate in her care Medications: Refilled hydrocortisone 2.5% (Proctosol HC) 1 appl MI BID-QID PRN 30 grams 2RF hemorrhoids K64.9 - Unspecified hemorrhoids Coding Level of Care Code Est Pt Level 3 (84208) Diagnoses Slow transit constipation K59.01 Constipation type: slow transit constipation Postprandial abdominal bloating R14.0 Hemorrhoids without complication K64.9 Time Spent (min) 25 Comment 15 minutes spent with patient and additional 10 minutes spent reviewing her records
== END 2024-05-11 10:32 | disposition home or self-care (01) ==
PROVIDERS: PCP Internal Medicine; Visit Provider Nurse Practitioner Family
DX: K59.01 Slow transit constipation (principal); R14.0 Abdominal distension (gaseous); K64.9 Unspecified hemorrhoids
CPT/HCPCS: 99213